=== PATIENT | male | born 1955 | race Caucasian/White ===

== ENCOUNTER → 2023-02-09 08:43 | Outpatient (CLI) | payer MEDICARE, OTHER, SELFPAY ==
--- NOTE | 2023-02-09 08:44 | DI.RAD.S_ITS ---
PROCEDURE: XR ANKLE LT MIN 3V INDICATIONS: Left ankle strain TECHNIQUE: Three views of the ankle were acquired. COMPARISON: None. FINDINGS: Bones: Subtle lucency at the distal tip of the fibula suspicious for a small nondisplaced fracture. Soft tissues: Mild soft tissue edema over the lateral malleolus. IMPRESSION: Suspected small nondisplaced fracture of the distal fibular tip. Recommend correlation for point tenderness. Approved by: Harsha Holley M.D. on 02/09/2023 at 13:40
== END ==
PROVIDERS: Referring Provider Nurse Practitioner Family; Visit Provider Nurse Practitioner Family
DX: S96.912A Strain of unspecified muscle and tendon at ankle and foot level, left foot, initial encounter (principal); X58.XXXA Exposure to other specified factors, initial encounter
CPT/HCPCS: 73610